=== PATIENT | male | born 1955 | race Caucasian/White ===

== ENCOUNTER 2021-10-20 07:06 | Day surgery (SDC) | payer OTHER ==
[~2021-10-20] VITALS: Ht 172.7 cm; Wt 108.9 kg
[~2021-10-20 07:06] MED LIST: AMLO-489 PO; ASPI1TAB19 PO; CHOL20007 PO; METO25TA93 PO; MULT-930 PO; OMEP-335 PO
[2021-10-20] MEDS ORDERED: IODIXANOL 320MG/ML 100ML BTL IV ONE (07:23)
[2021-10-20] MEDS ORDERED: IOHEXOL 350 MG/ML 100ML IJ ONE (07:23)
[2021-10-20] MEDS ORDERED: LIDOCAINE 2%HCL (LOCAL ANESTH.) INJ 20ML MDV ONE (07:24)
[2021-10-20] MEDS ORDERED: HEPARIN SODIUM (PORCINE) 5000 UNITS/ML 1ML VIAL ONE (07:45)
[2021-10-20] MEDS ORDERED: ANGIOMAX 250 MG VIAL IV ONE (07:45)
[2021-10-20] MEDS ORDERED: MIDAZOLAM HCL 2MG/2ML 2ml VIAL (1mg/ml) ONE (07:46)
[2021-10-20] MEDS ORDERED: SODIUM CHL 0.9% 0 ML ONE (07:46)
[2021-10-20] MEDS ORDERED: fentaNYL CITRATE 100 MCG/2 ML VL ONE (07:46)
[2021-10-20] MEDS ORDERED: VERAPAMIL 2.5MG/ML INJ 2ML VIAL IV ONE (07:46)
[2021-10-20 08:43] VITALS: BP 112/77
[2021-10-20 08:58] VITALS: BP 116/78
[2021-10-20 09:13] VITALS: BP 123/78
[2021-10-20 09:28] VITALS: BP 126/77
[2021-10-20 10:00] VITALS: BP 113/87
[2021-10-20 10:15] VITALS: BP 132/76
== END 2021-10-20 10:30 | disposition home or self-care (01) ==
LOC: CATH 07:06
PROVIDERS: ATTEND Internal Medicine Cardiovascular Disease
DX: R94.39 Abnormal result of other cardiovascular function study (principal); I25.10 Atherosclerotic heart disease of native coronary artery without angina pectoris; I10 Essential (primary) hypertension; K21.9 Gastro-esophageal reflux disease without esophagitis; M19.90 Unspecified osteoarthritis, unspecified site; Z87.891 Personal history of nicotine dependence; Z86.73 Personal history of transient ischemic attack (TIA), and cerebral infarction without residual deficits; Z20.822 Contact with and (suspected) exposure to COVID-19
CPT/HCPCS: 93458; C1769; C1887; C1894; J1644; J2250; J3010; J7040; Q9967; U0003; 99152